=== PATIENT | male | born 1940 | race Caucasian/White ===

== ENCOUNTER 2020-09-17 10:29 | Inpatient (IN) | payer MEDICARE ==
[~2020-09-17] VITALS: Ht 193 cm; Wt 83.9 kg
[2020-09-17] VITALS (7 sets, daily range): BP systolic 77–153; BP diastolic 48–75
[2020-09-17] MEDS ORDERED: SODIUM CHLORIDE 0.9% 500ML 500 ML IV ONE (11:00)
[2020-09-17 12:08] LABS: BASOPHILS % 0.3 % (0.0-1.0); EOSINOPHILS % 0.7 % (0.0-6.0); HEMATOCRIT 40.7 % (38.2-49.6); HEMOGLOBIN 13.2 g/dL (14.0-18.0); LYMPHOCYTES # (AUTO) 0.4 (1.0-3.2); LYMPHOCYTES % 6.9 % (18.0-39.1); MEAN CORPUSCULAR HEMOGLOBIN 29.5 pg (28-32); MEAN CORPUSCULAR HGB CONC 32.4 g/dL (31-35); MEAN CORPUSCULAR VOLUME 91.1 fL (81-99); MONOCYTES # (AUTO) 0.5 (0.2-0.8); MONOCYTES % 7.7 % (4.4-11.3); NEUTROPHILS # (AUTO) 5.2 (2.1-6.9); NEUTROPHILS % 84.1 % (38.7-80.0); PLATELET COUNT 196 x10e3/uL (140-360); RED BLOOD COUNT 4.47 x10e6/uL (4.3-5.7); RED CELL DISTRIBUTION WIDTH 15.2 % (11.7-14.4)
[2020-09-17 12:35] LABS: INR 1.03; PROTHROMBIN TIME 13.7 seconds (11.9-14.5)
[2020-09-17 12:36] LABS: PARTIAL THROMBOPLASTIN TIME 37.4 seconds (23.8-35.5)
[2020-09-17 12:42] LABS: ALBUMIN 4.4 g/dL (3.5-5.0); ALBUMIN/GLOBULIN RATIO 1.3 (0.8-2.0); ANION GAP 14.6 mmol/L (8-16); CALCIUM 9.3 mg/dL (8.4-10.2); CREATININE, SERUM 1.74 mg/dL (0.72-1.25); MAGNESIUM 2.1 MG/DL (1.3-2.1)
[2020-09-17 12:47] LABS: POTASSIUM 5.6 mmol/L (3.5-5.1)
[2020-09-17] MEDS ORDERED: ONDANSETRON HCL INJ 2MG/ML 2ML 2 MG/ML VIAL IV PRN (13:30)
[2020-09-17] MEDS: SODIUM CHLORIDE 0.9% 1000ML 1,000 ML IV SCH ×2 (13:30→23:30)
[2020-09-17] MEDS ORDERED: ACETAMINOPHEN 325 MG TAB PO PRN (16:00)
[2020-09-17] MEDS ORDERED: HYDRALAZINE HCL 20 MG/ML VIAL IV PRN (16:00)
[2020-09-17] MEDS ORDERED: POLYETHYLENE GLYCOL 3350 17 GM PACK PO PRN (16:00)
[2020-09-17] MEDS ORDERED: TRAZODONE HCL100 MG PO (17:23)
[2020-09-17] MEDS ORDERED: AMLODIPINE BESYL5 MG PO (17:23)
[2020-09-17] MEDS ORDERED: CYMBALTA30 MG PO (17:23)
[2020-09-17] MEDS ORDERED: DYMISTA NASAL S23 GM INH (17:23)
[2020-09-17] MEDS ORDERED: LAMOTRIGINE100 MG PO (17:23)
[2020-09-17] MEDS ORDERED: AMIODARONE HCL200 MG PO (17:23)
[2020-09-17] MEDS ORDERED: ELIQUIS5 MG PO (17:23)
[2020-09-17] MEDS ORDERED: ESOMEPRAZOLE MA40 MG PO (17:23)
[2020-09-17] MEDS ORDERED: FINASTERIDE5 MG PO (17:23)
[2020-09-17] MEDS ORDERED: BACTRIM DS TAB1 EACH PO (17:23)
[2020-09-17] MEDS ORDERED: CLONAZEPAM0.5 MG PO (17:23)
[2020-09-17] MEDS ORDERED: HYDROCHLOROTHIA25 MG PO (17:23)
[2020-09-17] MEDS ORDERED: CRESTOR10 MG PO (17:23)
[2020-09-17] MEDS ORDERED: BENAZEPRIL HCL10 MG PO (17:23)
[2020-09-17] MEDS: FAMOTIDINE 20 MG TAB PO SCH (17:54)
[2020-09-17] MEDS: DOCUSATE SODIUM 100 MG CAP PO SCH (17:54)
[2020-09-17 18:56] LABS: CREATINE KINASE MB 1.7 ng/mL (0-5.0)
[2020-09-18] VITALS (10 sets, daily range): BP systolic 111–157; BP diastolic 60–82
[2020-09-18 05:32] LABS: BASOPHILS % 0.6 % (0.0-1.0); EOSINOPHILS # (AUTO) 0.1 (0.0-0.4); EOSINOPHILS % 2.4 % (0.0-6.0); HEMATOCRIT 37.4 % (38.2-49.6); HEMOGLOBIN 12.1 g/dL (14.0-18.0); LYMPHOCYTES # (AUTO) 0.4 (1.0-3.2); LYMPHOCYTES % 11.5 % (18.0-39.1); MEAN CORPUSCULAR HEMOGLOBIN 29.2 pg (28-32); MEAN CORPUSCULAR HGB CONC 32.4 g/dL (31-35); MEAN CORPUSCULAR VOLUME 90.3 fL (81-99); MONOCYTES # (AUTO) 0.4 (0.2-0.8); MONOCYTES % 11.2 % (4.4-11.3); NEUTROPHILS # (AUTO) 2.5 (2.1-6.9); PLATELET COUNT 166 x10e3/uL (140-360); RED BLOOD COUNT 4.14 x10e6/uL (4.3-5.7)
[2020-09-18 06:15] LABS: CREATINE KINASE MB 2.5 ng/mL (0-5.0)
[2020-09-18 06:21] LABS: ALBUMIN 3.5 g/dL (3.5-5.0); ALBUMIN/GLOBULIN RATIO 1.2 (0.8-2.0); ANION GAP 12.7 mmol/L (8-16); CALCIUM 8.2 mg/dL (8.4-10.2); CHOL/HDL RATIO 2.8 (3.9-4.7); CREATININE, SERUM 1.33 mg/dL (0.72-1.25); MAGNESIUM 1.9 MG/DL (1.3-2.1); PHOSPHORUS 2.7 MG/DL (2.3-4.7); POTASSIUM 4.7 mmol/L (3.5-5.1)
[2020-09-18 07:39] LABS: FREE T4 (FREE THYROXINE) 1.07 ng/dL (0.8-1.8); THYROID STIMULATING HORMONE 2.542 uIU/mL (0.350-4.940)
[2020-09-18] MEDS: DOCUSATE SODIUM 100 MG CAP PO SCH ×2 (10:07→17:18)
[2020-09-18] MEDS: FAMOTIDINE 20 MG TAB PO SCH ×2 (10:07→17:18)
[2020-09-18] MEDS: SODIUM CHLORIDE 0.9% 1000ML 1,000 ML IV SCH ×2 (10:07→20:46)
[2020-09-18] MEDS ORDERED: CLOPIDOGREL BISULFATE 75 MG TAB PO ONE (10:45)
[2020-09-18 14:01] LABS: CREATINE KINASE MB 2.8 ng/mL (0-5.0)
[2020-09-18] MEDS: CRESTOR 10MG PO SCH (20:46)
[2020-09-19] VITALS (8 sets, daily range): BP systolic 121–169; BP diastolic 82–96
[2020-09-19] MEDS: SODIUM CHLORIDE 0.9% 1000ML 1,000 ML IV SCH ×2 (04:49→17:31)
[2020-09-19 05:27] LABS: BASOPHILS % 0.4 % (0.0-1.0); EOSINOPHILS # (AUTO) 0.1 (0.0-0.4); EOSINOPHILS % 1.6 % (0.0-6.0); HEMATOCRIT 40.4 % (38.2-49.6); HEMOGLOBIN 13.3 g/dL (14.0-18.0); LYMPHOCYTES # (AUTO) 0.4 (1.0-3.2); LYMPHOCYTES % 8.9 % (18.0-39.1); MEAN CORPUSCULAR HEMOGLOBIN 29.1 pg (28-32); MEAN CORPUSCULAR HGB CONC 32.9 g/dL (31-35); MEAN CORPUSCULAR VOLUME 88.4 fL (81-99); MONOCYTES # (AUTO) 0.6 (0.2-0.8); MONOCYTES % 12.6 % (4.4-11.3); NEUTROPHILS # (AUTO) 3.4 (2.1-6.9); NEUTROPHILS % 76.3 % (38.7-80.0); PLATELET COUNT 190 x10e3/uL (140-360); RED BLOOD COUNT 4.57 x10e6/uL (4.3-5.7); RED CELL DISTRIBUTION WIDTH 14.8 % (11.7-14.4)
[2020-09-19 05:46] LABS: ALBUMIN 3.7 g/dL (3.5-5.0); ALBUMIN/GLOBULIN RATIO 1.2 (0.8-2.0); ANION GAP 11.4 mmol/L (8-16); CALCIUM 8.6 mg/dL (8.4-10.2); CHOL/HDL RATIO 2.9 (3.9-4.7); CREATININE, SERUM 1.29 mg/dL (0.72-1.25); POTASSIUM 4.4 mmol/L (3.5-5.1)
[2020-09-19] MEDS ORDERED: FENTANYL CITRATE/PF 100MCG/2 ML INJ ONE (08:08)
[2020-09-19] MEDS ORDERED: LIDOCAINE HCL 2% LOCAL 20 ML VIAL ONE (08:08)
[2020-09-19] MEDS ORDERED: MIDAZOLAM HCL 2 MG/2 ML VIAL ONE (08:08)
[2020-09-19] MEDS ORDERED: SODIUM CHLORIDE 0.9% 1000ML 1,000 ML ONE (08:09)
[2020-09-19] MEDS ORDERED: HEPARIN SOD/SOD CHLORIDE 2,000 ML ONE (08:09)
[2020-09-19] MEDS ORDERED: IOPAMIDOL 370 MG/ML 200 ML INFUS..BTL INJ ONE (08:09)
[2020-09-19] MEDS ORDERED: NITROGLYCERIN/D5W 200 MCG/ML 250 ML ONE (08:10)
[2020-09-19] MEDS: DOCUSATE SODIUM 100 MG CAP PO SCH ×2 (09:00→17:00)
[2020-09-19] MEDS: BACITRACIN ZINC 15 GM OINT TOP SCH (09:00)
[2020-09-19] MEDS ORDERED: SODIUM CHLORIDE 0.9% 50ML 50 ML ONE (09:25)
[2020-09-19] MEDS ORDERED: BIVALRIUDIN 250 MG/VIAL VIAL IV ONE (09:25)
[2020-09-19] MEDS ORDERED: CLOPIDOGREL BISULFATE 75 MG TAB ONE (09:41)
[2020-09-19] MEDS ORDERED: ASPIRIN 325 MG TAB ONE (09:41)
[2020-09-19] MEDS: AMIODARONE HCL 200 MG TAB PO SCH (13:30)
[2020-09-19] MEDS: FAMOTIDINE 20 MG TAB PO SCH ×2 (16:24→16:25)
[2020-09-19 19:49] LABS: BLOOD UREA NITROGEN 16 mg/dL (7-26); GLUCOSE 99 mg/dL (74-118); OSMOLALITY,SERUM 264 mOsm/kg (278-305); SODIUM 131 mmol/L (136-145)
[2020-09-19] MEDS: CRESTOR 10MG PO SCH (21:13)
[2020-09-20] VITALS (9 sets, daily range): BP systolic 132–173; BP diastolic 70–96
[2020-09-20] MEDS: SODIUM CHLORIDE 0.9% 1000ML 1,000 ML IV SCH ×3 (03:12→23:00)
[2020-09-20 06:06] LABS: BASOPHILS % 0.3 % (0.0-1.0); EOSINOPHILS # (AUTO) 0.1 (0.0-0.4); EOSINOPHILS % 0.8 % (0.0-6.0); HEMATOCRIT 43.1 % (38.2-49.6); HEMOGLOBIN 13.9 g/dL (14.0-18.0); LYMPHOCYTES # (AUTO) 0.4 (1.0-3.2); LYMPHOCYTES % 5.7 % (18.0-39.1); MEAN CORPUSCULAR HEMOGLOBIN 29.1 pg (28-32); MEAN CORPUSCULAR HGB CONC 32.3 g/dL (31-35); MEAN CORPUSCULAR VOLUME 90.2 fL (81-99); MONOCYTES # (AUTO) 0.7 (0.2-0.8); MONOCYTES % 10.9 % (4.4-11.3); NEUTROPHILS # (AUTO) 5.2 (2.1-6.9); PLATELET COUNT 197 x10e3/uL (140-360); RED BLOOD COUNT 4.78 x10e6/uL (4.3-5.7)
[2020-09-20 06:24] LABS: ALBUMIN 3.7 g/dL (3.5-5.0); ALBUMIN/GLOBULIN RATIO 1.1 (0.8-2.0); ANION GAP 14.6 mmol/L (8-16); CALCIUM 8.8 mg/dL (8.4-10.2); CREATININE, SERUM 1.17 mg/dL (0.72-1.25); POTASSIUM 4.6 mmol/L (3.5-5.1)
[2020-09-20] MEDS: FAMOTIDINE 20 MG TAB PO SCH ×2 (07:59→17:09)
[2020-09-20] MEDS: SODIUM CHLORIDE 1 GM TAB PO SCH ×2 (08:45→17:09)
[2020-09-20] MEDS: DOCUSATE SODIUM 100 MG CAP PO SCH ×2 (08:45→17:09)
[2020-09-20] MEDS: ASPIRIN 81 MG ENTERIC COATED PO SCH (08:45)
[2020-09-20] MEDS: AMIODARONE HCL 200 MG TAB PO SCH (08:45)
[2020-09-20] MEDS: CLOPIDOGREL BISULFATE 75 MG TAB PO SCH (08:45)
[2020-09-20] MEDS: AMLODIPINE BESYLATE 5 MG TAB PO SCH (08:45)
[2020-09-20] MEDS: BACITRACIN ZINC 15 GM OINT TOP SCH (12:23)
[2020-09-20] MEDS ORDERED: ASPIRIN81 MG PO (13:20)
[2020-09-20] MEDS ORDERED: PLAVIX75 MG PO (13:20)
[2020-09-20] MEDS ORDERED: AMIODARONE HCL200 MG PO (13:21)
[2020-09-20] MEDS: CRESTOR 10MG PO SCH (21:49)
[2020-09-20] MEDS: TRAZODONE HCL 50 MG TAB PO SCH (21:49)
[2020-09-21] VITALS (8 sets, daily range): BP systolic 138–176; BP diastolic 68–98
[2020-09-21 06:02] LABS: BASOPHILS % 0.4 % (0.0-1.0); EOSINOPHILS # (AUTO) 0.1 (0.0-0.4); EOSINOPHILS % 0.7 % (0.0-6.0); HEMATOCRIT 43.6 % (38.2-49.6); HEMOGLOBIN 14.3 g/dL (14.0-18.0); LYMPHOCYTES # (AUTO) 0.7 (1.0-3.2); MEAN CORPUSCULAR HEMOGLOBIN 29.3 pg (28-32); MEAN CORPUSCULAR HGB CONC 32.8 g/dL (31-35); MEAN CORPUSCULAR VOLUME 89.3 fL (81-99); MONOCYTES % 12.3 % (4.4-11.3); NEUTROPHILS # (AUTO) 6.5 (2.1-6.9); NEUTROPHILS % 78.1 % (38.7-80.0); PLATELET COUNT 226 x10e3/uL (140-360); RED BLOOD COUNT 4.88 x10e6/uL (4.3-5.7); RED CELL DISTRIBUTION WIDTH 15.1 % (11.7-14.4)
[2020-09-21 06:29] LABS: CREATININE, SERUM 0.95 mg/dL (0.72-1.25)
[2020-09-21] MEDS: AMIODARONE HCL 200 MG TAB PO SCH (08:09)
[2020-09-21] MEDS: ASPIRIN 81 MG ENTERIC COATED PO SCH (08:09)
[2020-09-21] MEDS: FAMOTIDINE 20 MG TAB PO SCH ×2 (08:09→16:53)
[2020-09-21] MEDS: AMLODIPINE BESYLATE 5 MG TAB PO SCH (08:09)
[2020-09-21] MEDS: SODIUM CHLORIDE 0.9% 1000ML 1,000 ML IV SCH ×2 (08:09→17:30)
[2020-09-21] MEDS: CLOPIDOGREL BISULFATE 75 MG TAB PO SCH (08:09)
[2020-09-21] MEDS: DOCUSATE SODIUM 100 MG CAP PO SCH ×2 (08:09→16:54)
[2020-09-21] MEDS: SODIUM CHLORIDE 1 GM TAB PO SCH ×2 (08:09→16:54)
[2020-09-21] MEDS: BACITRACIN ZINC 15 GM OINT TOP SCH (08:10)
[2020-09-21] MEDS ORDERED: AMLODIPINE BESYLATE 10 MG TAB PO NR (15:30)
[2020-09-21] MEDS: CRESTOR 10MG PO SCH (20:47)
[2020-09-21] MEDS: TRAZODONE HCL 50 MG TAB PO SCH (20:47)
[2020-09-22] VITALS: BP 163/94
[2020-09-22] MEDS: SODIUM CHLORIDE 0.9% 1000ML 1,000 ML IV SCH (04:15)
[2020-09-22 05:36] LABS: BASOPHILS % 0.3 % (0.0-1.0); EOSINOPHILS % 0.4 % (0.0-6.0); HEMATOCRIT 40.6 % (38.2-49.6); HEMOGLOBIN 13.4 g/dL (14.0-18.0); LYMPHOCYTES # (AUTO) 0.4 (1.0-3.2); LYMPHOCYTES % 6.4 % (18.0-39.1); MEAN CORPUSCULAR HEMOGLOBIN 29.5 pg (28-32); MEAN CORPUSCULAR VOLUME 89.2 fL (81-99); MONOCYTES # (AUTO) 0.7 (0.2-0.8); MONOCYTES % 10.2 % (4.4-11.3); NEUTROPHILS # (AUTO) 5.6 (2.1-6.9); NEUTROPHILS % 82.1 % (38.7-80.0); PLATELET COUNT 203 x10e3/uL (140-360); RED BLOOD COUNT 4.55 x10e6/uL (4.3-5.7); RED CELL DISTRIBUTION WIDTH 15.2 % (11.7-14.4)
[2020-09-22 05:50] VITALS: BP 157/94
[2020-09-22 06:06] LABS: ANION GAP 11.7 mmol/L (8-16); CALCIUM 8.2 mg/dL (8.4-10.2); CREATININE, SERUM 0.95 mg/dL (0.72-1.25); MAGNESIUM 1.6 MG/DL (1.3-2.1); POTASSIUM 3.7 mmol/L (3.5-5.1)
[2020-09-22] MEDS: FAMOTIDINE 20 MG TAB PO SCH (07:30)
[2020-09-22 08:03] VITALS: BP 156/96
[2020-09-22] MEDS: DOCUSATE SODIUM 100 MG CAP PO SCH (09:00)
[2020-09-22] MEDS: AMIODARONE HCL 200 MG TAB PO SCH (09:00)
[2020-09-22] MEDS: CLOPIDOGREL BISULFATE 75 MG TAB PO SCH (09:00)
[2020-09-22] MEDS: SODIUM CHLORIDE 1 GM TAB PO SCH (09:00)
[2020-09-22] MEDS ORDERED: AMLODIPINE BESYLATE 10 MG TAB PO SCH (09:00)
[2020-09-22] MEDS: BACITRACIN ZINC 15 GM OINT TOP SCH (09:00)
[2020-09-22] MEDS: ASPIRIN 81 MG ENTERIC COATED PO SCH (09:00)
[2020-09-22] MEDS ORDERED: ONDANSETRON HCL 4 MG ORAL DISINTEGRATING TAB PO PRN (12:00)
[2020-09-22 12:29] VITALS: BP 159/92
[2020-09-22 15:43] VITALS: BP 159/92
[2020-09-22] MEDS ORDERED: BACITRACIN ZINC 15 GM OINT TOP SCH (21:00)
== END 2020-09-22 15:30 | disposition home or self-care (01) | DRG 247 ==
LOC: ER 10:58 → ERHOLD 13:32 → MED/SURG3 14:07 → MED/SURG 09-19 18:31
PROVIDERS: ADMIT Internal Medicine; ATTEND Internal Medicine
PROC: 027034Z Dilation of Coronary Artery, One Artery with Drug-eluting Intraluminal Device, Percutaneous Approach (ICD-10-PCS; principal; 2020-09-19)
PROC: 4A023N7 Measurement of Cardiac Sampling and Pressure, Left Heart, Percutaneous Approach (ICD-10-PCS; 2020-09-19)
PROC: B2111ZZ Fluoroscopy of Multiple Coronary Arteries using Low Osmolar Contrast (ICD-10-PCS; 2020-09-19)
PROC: B2151ZZ Fluoroscopy of Left Heart using Low Osmolar Contrast (ICD-10-PCS; 2020-09-19)
DX: I25.110 Atherosclerotic heart disease of native coronary artery with unstable angina pectoris (principal); N17.9 Acute kidney failure, unspecified; E87.1 Hypo-osmolality and hyponatremia; I25.84 Coronary atherosclerosis due to calcified coronary lesion; Z95.5 Presence of coronary angioplasty implant and graft; E86.0 Dehydration; S91.105A Unspecified open wound of left lesser toe(s) without damage to nail, initial encounter; X58.XXXA Exposure to other specified factors, initial encounter; Z20.822 Contact with and (suspected) exposure to COVID-19; E78.5 Hyperlipidemia, unspecified; M20.42 Other hammer toe(s) (acquired), left foot; F80.9 Developmental disorder of speech and language, unspecified; G30.0 Alzheimer's disease with early onset; F02.80 Dementia in other diseases classified elsewhere, unspecified severity, without behavioral disturbance, psychotic disturbance, mood disturbance, and anxiety; I48.0 Paroxysmal atrial fibrillation; Z79.01 Long term (current) use of anticoagulants; I25.2 Old myocardial infarction; I11.9 Hypertensive heart disease without heart failure; I45.10 Unspecified right bundle-branch block; I95.1 Orthostatic hypotension; I49.5 Sick sinus syndrome; Z74.09 Other reduced mobility
CPT/HCPCS: 36415; 70450; 71045; 80048; 80053; 80061; 82550; 82553; 82947; 83036; 83735; 83880; 84100; 84295; 84439; 84443; 84484; 84520; 85025; 85610; 85730; 92928; 93005; 93306; 93458; 93880; 97139; 99152; 99153; 99251; 99284; C1760; C1766; C1769; C1876; J0583; J2001; J2250; J3010; J7030; J7040; Q9967; U0002